=== PATIENT | male | born 1940 | race Caucasian/White ===

== ENCOUNTER 2017-06-15 01:53 | Emergency (ER) | payer MEDICARE, BC ==
[2017-06-15] MEDS ORDERED: NS 0.9% 1000 ML* 1,000 ML IV SCH (02:30)
[2017-06-15 02:45] LABS: ABS Basophils 0.1 10^3/ul (0-0.2); ABS Eosinophils 0.1 10^3/ul (0-0.6); ABS Lymphocytes 3.3 10^3/ul (1.0-4.8); ABS Monocytes 0.6 10^3/ul (0-0.8); ABS Nucleated RBC 0 10^3/ul; Eosinophil % 1.8 % (0-6); Hematocrit 47 % (42-52); Hemoglobin 15.5 g/dl (14.0-18.0); Lymphocyte % 46.8 % (25-47); Mean Corpuscular HGB Conc 33 g/dl (31-36); Mean Corpuscular Hemoglobin 30 pg (27-31); Mean Corpuscular Volume 91 fL (80-94); Mean Platelet Volume 9 um3 (7.4-10.4); Nucleated Red Blood Cells % 0.1; Platelet Count 225 10^3/ul (150-450); Red Blood Count 5.11 10^6/ul (4.0-5.4); Red Cell Distribution Width 13 % (10.5-15)
[2017-06-15 02:54] LABS: INR 2.38 (0.77-1.02)
[2017-06-15 04:04] VITALS: BP 131/61
--- NOTE | 2017-06-15 04:23 | ED ---
Fabian Garcia Natalie, scribed for Jose Hickman MD on 06/15/17 at 0218 . HPI Chest Pain - HPI Summary HPI Summary: The pt is a 76 y/o M presenting to the ED c/o right CP starting at 19:00. This occurred about 15-20 times since onset in intermittent 20-30 second intervals. He checked his BP and pulse, with both higher than normal and an increased amount of PVCs. The pt describes the pain as noticeable but not sharp. The pain is rated 2/10. The pain is aggravated by nothing and alleviated by nothing. He hasnt had any episodes in the last hour. The patient has treated the pain with nothing [employer]. Pt additionally c/o lightheadedness and dizziness. Pt denies nausea, diaphoresis, and SOB. He has hx of TIA in 2008, stent in 2003 , DVT, and Afib. He has had a stress test within the last two years. - History of Current Complaint Chief Complaint: EDChestPainROMI Time Seen by Provider: 06/15/17 02:03 Hx Obtained From: Patient Onset/Duration: Started Hours Ago - at 19:00, Resolved - hasn't had CP since 01: 00 Timing: Intermittent, Lasting Seconds - 20-30 seconds Initial Severity: Moderate Current Severity: Mild Pain Intensity: 0 Pain Scale Used: 0-10 Numeric Chest Pain Location: Right Anterior Chest Pain Radiates: No Character: Other: - "noticeable but not sharp" Aggravating Factor(s): Nothing Alleviating Factor(s): Nothing Associated Signs and Symptoms: Positive: Chest Pain, Dizziness, Lightheadedness. Negative: Shortness of Breath, Diaphoresis, Nausea - Allergy/Home Medications Allergies/Adverse Reactions: Allergies Allergy/AdvReac Type Severity Reaction Status Date / Time Sulfa Drugs Allergy Mild Rash Verified 04/23/16 09:55 Adhesive Tape Allergy See Comment Verified 04/23/16 09:56 PMH/Surg Hx/FS Hx/Imm Hx Previously Healthy: No Endocrine/Hematology History: Reports: Hx Anticoagulant Therapy - cumodin Denies: Hx Blood Disorders, Hx Blood Transfusions, Hx Bone Marrow Disease, Hx Diabetes, Hx Systemic Lupus Erythematosus, Hx Sickle Cell Disease, Hx Thyroid Disease, Hx Anemia, Hx Unexplained Bleeding, Other Endocrine/ Hematological Disorders Cardiovascular History: Reports: Hx Angina, Hx Angioplasty, Hx Coronary Artery Disease, Hx Deep Vein Thrombosis, Hx Hypertension - ON MEDS, Other Cardiovascular Problems/Disorders - A-FIB Denies: Hx Aneurysm, Hx Auto Implanted Cardiovert Defib, Hx Cardiac Arrest, Hx Cardiomegaly, Hx Congestive Heart Failure, Hx Hypercholesterolemia, Hx Hypotension, Hx Myocardial Infarction, Hx Pacemaker/ICD, Hx Peripheral Vascular Disease, Hx Rheumatic Fever, Hx Syncope, Hx Valvular Heart Disease Respiratory History: Denies: Hx Asthma, Hx Chronic Obstructive Pulmonary Disease (COPD) GI History: Reports: Hx Gastroesophageal Reflux Disease Denies: Hx Cirrhosis, Hx Crohn's Disease, Hx Diverticulosis, Hx Gastrointestinal Bleed, Hx Hiatal Hernia, Hx Irritable Bowel, Hx Jaundice, Hx Obstructive Bowel, Hx Ileostomy, Hx Pyloric Stenosis, Hx Ulcer, Other GI Disorders History: Reports: Hx Benign Prostatic Hyperplasia Denies: Hx Acute Renal Failure, Hx Chronic Renal Failure, Hx Dialysis, Hx Kidney Infection, Hx Kidney Stones, Hx Renal Disease, Other Problems/ Disorders Musculoskeletal History: Reports: Hx Arthritis, Hx Back Problems Denies: Hx Bursitis, Hx Congenital Bone Abnormalities, Hx Fibromyalgia, Hx Gout, Hx Orthopedic Injury, Hx Osteoporosis, Hx Scoliosis, Hx Tendonitis, Other Musculoskeletal History Sensory History: Reports: Hx Contacts or Glasses, Hx Vision Problem Denies: Hx Cataracts, Hx Eye Injury, Hx Eye Prosthesis, Hx Glaucoma, Hx Macular Degeneration, Hx Deafness, Hx Hearing Aid, Hx Hearing Problem, Other Sensory Impairments Opthamlomology History: Reports: Hx Contacts or Glasses, Hx Vision Problem Denies: Hx Cataracts, Hx Eye Injury, Hx Eye Prosthesis, Hx Glaucoma, Hx Macular Degeneration, Other Sensory Impairments Neurological History: Reports: Hx Nerve Disease - Jslbvcmg-Qojdu-Sblev syndrome , Other Neuro Impairments/Disorders - 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 BASAL CELL CARCINOMA REMOVED FROM BILATERAL EAR LOBES 2014. LEFT TOE NAIL REMOVED. TONSILS AGE 5. CATARACTS BILATERAL AND 04/01/16 Hx Anesthesia Reactions: No Infectious Disease History: No Infectious Disease History: Denies: Hx Hepatitis, Traveled Outside the [place] in Last 30 Days - Family History Known Family History: Positive: Hypertension Negative: Diabetes - Social History Alcohol Use: Occasionally Substance Use Type: Reports: None Hx Tobacco Use: No Smoking Status (MU): Never Smoked Tobacco Review of Systems Negative: Skin Diaphoresis Positive: Chest Pain Negative: Shortness Of Breath Negative: Nausea Neurological: Other - lightheadedness, dizziness All Other Systems Reviewed And Are Negative: Yes Physical Exam Triage Information Reviewed: Yes Vital Signs On Initial Exam: Initial Vitals Temp Pulse Resp BP Pulse Ox 97.8 F 68 18 131/80 95 06/15/17 01:56 06/15/17 01:56 06/15/17 01:56 06/15/17 01:56 06/15/17 01:56 Vital Signs Reviewed: Yes Appearance: Positive: Well-Appearing, No Pain Distress Skin: Positive: Warm, Skin Color Reflects Adequate Perfusion, Dry Head/Face: Positive: Normal Head/Face Inspection Eyes: Positive: EOMI, MARI ENT: Positive: Normal ENT inspection Neck: Positive: Supple, Nontender Respiratory/Lung Sounds: Positive: Clear to Auscultation, Breath Sounds Present Cardiovascular: Positive: RRR Abdomen Description: Positive: Nontender, Soft Bowel Sounds: Positive: Present Musculoskeletal: Positive: Normal, Strength/ROM Intact Neurological: Positive: Normal, Sensory/Motor Intact, Alert, Oriented to Person Place, Time Psychiatric: Positive: Affect/Mood Appropriate - Heath Coma Scale Coma Scale Total: 15 Diagnostics - Vital Signs Vital Signs Temp Pulse Resp BP Pulse Ox 06/15/17 01:56 97.8 F 68 18 131/80 95 - Laboratory Lab Results: Lab Results 06/15/17 06/15/17 06/15/17 Range/Units 02:34 02:34 02:34 WBC 7.0 (3.5-10.8) 10^3/ul RBC 5.11 (4.0-5.4) 10^6/ul Hgb 15.5 (14.0-18.0) g/dl Hct 47 (42-52) % MCV 91 (80-94) fL MCH 30 (27-31) pg MCHC 33 (31-36) g/dl RDW 13 (10.5-15) % Plt Count 225 (150-450) 10^3/ul MPV 9 (7.4-10.4) um3 Neut % (Auto) 42.6 (38-83) % Lymph % (Auto) 46.8 (25-47) % [place] % (Auto) 8.0 (1-9) % Eos % (Auto) 1.8 (0-6) % Baso % (Auto) 0.8 (0-2) % Absolute Neuts (auto) 3.0 (1.5-7.7) 10^3/ul Absolute Lymphs (auto) 3.3 (1.0-4.8) 10^3/ul Absolute Monos (auto) 0.6 (0-0.8) 10^3/ul Absolute Eos (auto) 0.1 (0-0.6) 10^3/ul Absolute Basos (auto) 0.1 (0-0.2) 10^3/ul Absolute Nucleated RBC 0 10^3/ul Nucleated RBC % 0.1 INR (Anticoag Therapy) 2.38 H (0.77-1.02) APTT 42.2 H (26.0-36.3) seconds D-Dimer, Quantitative < 200 (Less Than 230) ng/mL Sodium (133-145) mmol/L Potassium (3.5-5.0) mmol/L Chloride (101-111) mmol/L Carbon Dioxide (22-32) mmol/L Anion Gap (2-11) mmol/L BUN (6-24) mg/dL Creatinine (0.67-1.17) mg/dL Est GFR ( Amer) (>60) Est GFR (Non-Af Amer) (>60) BUN/Creatinine Ratio (8-20) Glucose (70-100) mg/dL Lactic Acid (0.5-2.0) mmol/L Calcium (8.6-10.3) mg/dL Magnesium (1.9-2.7) mg/dL Total Bilirubin (0.2-1.0) mg/dL AST (13-39) U/L ALT (7-52) U/L Alkaline Phosphatase (34-104) U/L Total Creatine Kinase (10-223) U/L CK-MB (CK-2) (0.6-6.3) ng/mL Troponin I (<0.04) ng/mL B-Natriuretic Peptide 13 ( - 100) pg/mL Total Protein (6.4-8.9) g/dL Albumin (3.2-5.2) g/dL Globulin (2-4) g/dL Albumin/Globulin Ratio (1-3) TSH (0.34-5.60) mcIU/mL 06/15/17 06/15/17 Range/Units 02:34 02:34 WBC (3.5-10.8) 10^3/ul RBC (4.0-5.4) 10^6/ul Hgb (14.0-18.0) g/dl Hct (42-52) % MCV (80-94) fL MCH (27-31) pg MCHC (31-36) g/dl RDW (10.5-15) % Plt Count (150-450) 10^3/ul MPV (7.4-10.4) um3 Neut % (Auto) (38-83) % Lymph % (Auto) (25-47) % [place] % (Auto) (1-9) % Eos % (Auto) (0-6) % Baso % (Auto) (0-2) % Absolute Neuts (auto) (1.5-7.7) 10^3/ul Absolute Lymphs (auto) (1.0-4.8) 10^3/ul Absolute Monos (auto) (0-0.8) 10^3/ul Absolute Eos (auto) (0-0.6) 10^3/ul Absolute Basos (auto) (0-0.2) 10^3/ul Absolute Nucleated RBC 10^3/ul Nucleated RBC % INR (Anticoag Therapy) (0.77-1.02) APTT (26.0-36.3) seconds D-Dimer, Quantitative (Less Than 230) ng/mL Sodium 139 (133-145) mmol/L Potassium 4.2 (3.5-5.0) mmol/L Chloride 106 (101-111) mmol/L Carbon Dioxide 27 (22-32) mmol/L Anion Gap 6 (2-11) mmol/L BUN 16 (6-24) mg/dL Creatinine 0.96 (0.67-1.17) mg/dL Est GFR ( Amer) 97.7 (>60) Est GFR (Non-Af Amer) 76.0 (>60) BUN/Creatinine Ratio 16.7 (8-20) Glucose 101 H (70-100) mg/dL Lactic Acid 1.7 (0.5-2.0) mmol/L Calcium 8.4 L (8.6-10.3) mg/dL Magnesium 2.1 (1.9-2.7) mg/dL Total Bilirubin 1.50 H (0.2-1.0) mg/dL AST 29 (13-39) U/L ALT 37 (7-52) U/L Alkaline Phosphatase 50 (34-104) U/L Total Creatine Kinase 470 H (10-223) U/L CK-MB (CK-2) 10.6 H (0.6-6.3) ng/mL Troponin I 0.01 (<0.04) ng/mL B-Natriuretic Peptide ( - 100) pg/mL Total Protein 6.1 L (6.4-8.9) g/dL Albumin 3.5 (3.2-5.2) g/dL Globulin 2.6 (2-4) g/dL Albumin/Globulin Ratio 1.3 (1-3) TSH 4.01 (0.34-5.60) mcIU/mL Result Diagrams: 06/15/17 02:34 06/15/17 02:34 Lab Statement: Any lab studies that have been ordered have been reviewed, and results considered in the medical decision making process. - EKG 01:53 Cardiac Rate: NL EKG Rhythm: Sinus Rhythm - 67 BPM EKG Interpretation: Nml ST. Positive PVC. Chest Pain Course/Dx - Course Course Of Treatment: Medications reviewed. Allergies noted. RECOMMENED ADMISSION TO THE PATIENT. HE DECLINED. PAIN STARTED AT 1900; THE TROPONIN WAS DRAWN 6 HOURS AFTER PAIN STARTED SO, NO SECOND TROPONIN DRAWN. WILL F/U WITH PMD OR RETURN IF WORSE. - Diagnoses Provider Diagnoses: Chest pain Discharge - Discharge Plan Condition: Stable Disposition: HOME Patient Education Materials: Chest Pain (ED) Referrals: Lucita Harden MD [Primary Care Provider] - Additional Instructions: FOLLOW UP WITH YOUR DOCTOR. CALL TODAY FOR FOLLOW UP. DISCUSS HAVING A CARDIAC STRESS TEST. RETURN TO THE EMERGENCY DEPARTMENT FOR ANY WORSENING OF YOUR CONDITION; PAIN, SHORTNESS OF BREATH, YOU FEEL ILL OR QUESTIONS OR CONCERNS. The documentation as recorded by the Fabian bhatti Natalie accurately reflects the service I personally performed and the decisions made by me, Jose Hickman MD.
--- NOTE | 2017-06-15 08:05 | RAD ---
INDICATION: Chest pain. COMPARISON: Comparison is made with prior chest x-ray study from November 12, 2015. TECHNIQUE: A portable view of the chest was obtained. FINDINGS: The heart is within normal limits in size. The lungs are underinflated with more focal elevation of the right hemidiaphragm. The lungs appear grossly clear. No pleural effusion is seen. IMPRESSION: NO EVIDENCE FOR ACUTE DISEASE.
== END 2017-06-15 04:03 | disposition home or self-care (01) ==
LOC: ED 01:53
DX: R07.9 Chest pain, unspecified (principal); Z86.73 Personal history of transient ischemic attack (TIA), and cerebral infarction without residual deficits; Z86.718 Personal history of other venous thrombosis and embolism; Z86.79 Personal history of other diseases of the circulatory system; Z88.2 Allergy status to sulfonamides
CPT/HCPCS: 36415; 71045; 80053; 82550; 82553; 83605; 83735; 83880; 84443; 84484; 85025; 85379; 85610; 85730; 93005; 99282

== ENCOUNTER 2017-08-24 08:20 | Observation (INO) | payer MEDICARE, BC ==
[2017-08-24 09:01] LABS: ABS Basophils 0 10^3/ul (0-0.2); ABS Eosinophils 0.1 10^3/ul (0-0.6); ABS Lymphocytes 2.3 10^3/ul (1.0-4.8); ABS Monocytes 0.4 10^3/ul (0-0.8); ABS Neutrophils 3.2 10^3/ul (1.5-7.7); ABS Nucleated RBC 0 10^3/ul; Hematocrit 46 % (42-52); Hemoglobin 15.5 g/dl (14.0-18.0); Lymphocyte % 38.7 % (25-47); Mean Corpuscular HGB Conc 34 g/dl (31-36); Mean Corpuscular Hemoglobin 31 pg (27-31); Mean Corpuscular Volume 91 fL (80-94); Mean Platelet Volume 9 um3 (7.4-10.4); Nucleated Red Blood Cells % 0.1; Platelet Count 199 10^3/ul (150-450); Red Blood Count 5.06 10^6/ul (4.0-5.4); Red Cell Distribution Width 14 % (10.5-15)
[2017-08-24 09:10] LABS: INR 1.08 (0.77-1.02)
[2017-08-24 09:18] LABS: EGFR Non-African American 74.2 (>60)
[2017-08-24] MEDS ORDERED: Diazepam TAB(*) 5 MG ONE (09:41)
[2017-08-24] MEDS ORDERED: diPHENhydraMINE PO* 25 MG ONE (09:41)
[2017-08-24] MEDS ORDERED: nitroGLYCERIN DRIP* 25,000 MCG/250 ML BTL ONE (09:51)
[2017-08-24] MEDS ORDERED: Heparin 2 UNITS/ML IVPREMIX* 3,000 ML IV ONE (09:51)
[2017-08-24] MEDS ORDERED: Lidocaine 1% INJ* 10 MG/ML 30 ML SDV ONE (09:51)
[2017-08-24] MEDS ORDERED: Iohexol 350 (CONTRAST) 200 ML MDV IV ONE ×2 (09:51→11:39)
[2017-08-24] MEDS ORDERED: fentaNYL* 50 MCG/ML 2 ML VIAL (100 MCG VIAL) ONE (09:51)
[2017-08-24] MEDS ORDERED: Midazolam* 1 MG/ML 10 ML VIAL (10 MG) ONE (09:51)
[2017-08-24] MEDS ORDERED: Heparin(*) 1000 UNIT/ML 10 ML VIAL CATH LAB IV ONE (09:51)
[2017-08-24] MEDS ORDERED: VERAPAMIL 2.5 MG/ML 2 ML VIAL ** 5 mg/2 ml ONE (09:52)
[2017-08-24] MEDS ORDERED: Aspirin 81 mg CHEW TAB* 81 MG TAB.CHEW ONE (09:55)
[2017-08-24] MEDS ORDERED: Adenosine* 3 MG/ML VIAL ONE (11:07)
[2017-08-24] MEDS ORDERED: Clopidogrel TAB* 300 MG ONE (11:37)
[2017-08-24] MEDS ORDERED: Bivalirudin(*) 250 MG VIAL ONE ×2 (11:46→11:47)
[2017-08-24] MEDS ORDERED: Nitroglycerin TAB 0.4 MG* 0.4 MG TAB SL PRN (12:39)
[2017-08-24] MEDS ORDERED: oxyCODONE/Acetamin 5/325 MG* TAB PO PRN (12:45)
[2017-08-24] MEDS ORDERED: Ondansetron INJ* 2 MG/ML VIAL IV PRN (12:45)
[2017-08-24] MEDS ORDERED: NS 0.9% 1000 ML* 1,000 ML IV SCH (12:45)
[2017-08-24] MEDS ORDERED: Acetaminophen TAB* 325 MG PO PRN (12:45)
[2017-08-24] MEDS ORDERED: Zolpidem TAB* 5 MG PO PRN (12:45)
[2017-08-24] MEDS: fentaNYL* 50 MCG/ML 2 ML VIAL (100 MCG VIAL) IV PRN ×2 (13:17→17:43)
[2017-08-24] MEDS ORDERED: Losartan TAB* 25 MG PO SCH (21:00)
[2017-08-24] MEDS: Potassium Chlor TAB* 20 MEQ TAB.ER PO SCH (21:32)
[2017-08-25 05:24] LABS: ABS Basophils 0.1 10^3/ul (0-0.2); ABS Eosinophils 0.1 10^3/ul (0-0.6); ABS Lymphocytes 2.8 10^3/ul (1.0-4.8); ABS Monocytes 0.6 10^3/ul (0-0.8); ABS Neutrophils 4.8 10^3/ul (1.5-7.7); ABS Nucleated RBC 0 10^3/ul; Eosinophil % 1.2 % (0-6); Hematocrit 43 % (42-52); Hemoglobin 14.7 g/dl (14.0-18.0); Lymphocyte % 33.1 % (25-47); Mean Corpuscular HGB Conc 34 g/dl (31-36); Mean Corpuscular Hemoglobin 31 pg (27-31); Mean Corpuscular Volume 91 fL (80-94); Mean Platelet Volume 9 um3 (7.4-10.4); Nucleated Red Blood Cells % 0.1; Platelet Count 194 10^3/ul (150-450); Red Blood Count 4.73 10^6/ul (4.0-5.4); Red Cell Distribution Width 14 % (10.5-15); White Blood Count 8.4 10^3/ul (3.5-10.8)
[2017-08-25 05:34] LABS: EGFR Non-African American 70.8 (>60)
[2017-08-25] MEDS ORDERED: Clopidogrel TAB* 75 MG PO SCH (09:00)
[2017-08-25] MEDS ORDERED: CMCS:Epleronone (NF) 25 MG TAB PO SCH (09:00)
[2017-08-25] MEDS ORDERED: Indapamide TAB* 2.5 MG PO SCH (09:00)
[2017-08-25] MEDS ORDERED: Aspirin 81 mg CHEW TAB* 81 MG TAB.CHEW PO SCH (09:00)
[2017-08-25 09:13] VITALS: BP 142/90
[2017-08-25] MEDS: Potassium Chlor TAB* 20 MEQ TAB.ER PO SCH (09:18)
--- NOTE | 2017-08-26 02:39 | CATH ---
CC: Dr. Padma Owens; Dr. Lucita Harden * CARDIAC CATHETERIZATION REPORT: DATE OF PROCEDURE: 08/24/17 - ROOM #ICU-03 INDICATION FOR PROCEDURE: The patient with history of shortness of breath and chest discomfort episodes with worsening left ventricular systolic function with focal reversible ischemia to the low posterolateral wall on stress testing and abnormal echocardiographic findings of proximal posterolateral wall motion abnormality and with [id number] aortic stenosis. PROCEDURE: Coronary arteriography, left heart catheterization, left ventriculography, balloon angioplasty, and placement of a 3.0 x 24 mm long Synergy drug-eluting stent post dilated proximally to 3.65 to 3.7 mm and in the distal portion to 3.2 mm. DESCRIPTION OF PROCEDURE: The patient was interviewed and examined in the holding area where the risks and benefits were explained. The right radial artery was assessed by ultrasound and found to be acceptable for an attempted approach. The risks and benefits were explained. He and his understood them and wished to proceed. He was brought to the cardiovascular laboratory where formal time-out was performed. The patient was prepped and draped in sterile fashion. The right radial artery area was anesthetized with 1% lidocaine. The right radial artery area was cannulated and a 6-Afghan Glidesheath was placed. A radial artery cocktail including 3000 units of heparin, 300 mcg of nitroglycerin, and 3 mg verapamil was given intraarterially. Following this, attempts were made to deliver a 5-Afghan 4 curve TIG diagnostic catheter. Unfortunately, there was excessive tortuosity with trying to attempt to get from the innominate artery into the descending aorta with the diagnostic catheter with frequent prolapse into the distal ascending aorta despite multiple wire approaches. An attempt was made utilizing an FL3.5 curve catheter, which found the same lack of success. Given the concern of the instability of diagnostic catheters and potentially guide catheters, decision was made to abort the radial artery approach. The right femoral artery had already been prepped and draped in sterile fashion. The right radial artery area was anesthetized with 1% lidocaine and the right radial artery was cannulated with an anterior wall stick only and initially a 5- Afghan sheath was placed. Coronary arteriography was performed utilizing a 4.5 curve FL5 Afghan catheter and a 4.0 curve 5-Afghan right coronary catheter. Central aortic pressure was recorded using an angled pigtail catheter advanced to the ascending aorta. The catheter was then passed across the aortic valve into the left ventricle where left ventricular pressure was recorded. Left ventriculography was performed utilizing a total of 24 cc of Omnipaque dye at a rate of 12 cc/sec. The catheter was then pulled back across the aortic valve to recheck gradient. Following this, decision was made to perform fractional flow reserve analysis of the proximal circumflex lesion. The 5-Afghan sheath was exchanged for a 6.5 Afghan Merit Prelude sheath. Guiding views were obtained utilizing a 6-Afghan VL 4 curve guide catheter. The patient received additional heparin bolus; however, the ACT was still found to be nontherapeutic and as such an Angiomax bolus was given and Angiomax drip was started. A FFR [address] [place] was advanced down the circumflex artery past the obstruction after being calibrated just outside the guide catheter. Multiple injections of adenosine were given intracoronary. Following this, the decision was then made to intervene into the proximal circumflex artery. A BMW guidewire was advanced down the circumflex artery and a 3.0 x 12 mm long NC Emerge balloon was advanced and expanded to assess the expandability of the lesion and also to auto damage estimator length of the lesion. Following this, a 3.0 x 24 mm long Synergy drug-eluting stent was deployed to high pressure with post deployment dilatations made with both the 3.0 x 12 mm long NC Emerge balloon to high pressures as well as a 3.5 x 8 mm long NC Emerge balloon to high pressure. Throughout the case, the right radial artery sheath was flushed on a routine basis and at the end of the case, the right radial artery sheath was removed and hemostasis was obtained with a Vasc Band and the right femoral artery sheath was removed after an injection was made to assess eligibility utilizing a closure device. A 6/7 Afghan Mynx closure device was deployed with good hemostasis. Various medications given throughout the case included initially Valium and Benadryl pre-cath and a total 324 mg of aspirin chewed prior to the cardiac catheterization. The patient received Versed in addition to heparin boluses, in addition to the Angiomax bolus and drip. The patient received 600 mg of clopidogrel and multiple fentanyl boluses for lower back discomfort. The total contrast used was 200 cc of Omnipaque dye. The radiation exposure included 21.6 minutes of fluoro time. The air kerma radiation was 2645 mGy. The DAP radiation was 15,810 microgray per sq. m. RESULTS: HEMODYNAMIC DATA: Left heart catheterization - revealed central aortic pressure to be recorded at 119/58 with a mean of 82. Left ventricular pressure was 117 over the ventricular end diastolic pressure of 11. LEFT VENTRICULOGRAPHY: Performed in the VARGAS projection revealed there was global left ventricular hypokinesis noted with an overall ejection fraction estimated at approximately 40% to 45%. CORONARY ARTERIOGRAPHY: A. Left coronary artery: 1. Left main: There was mild tapering of the distal left main approximately 20%. 2. Left anterior descending artery: The ostium of the left anterior descending artery had a 35% narrowing noted in it. There was a high first diagonal branch. Following this high first diagonal branch, there was a long segment in the proximal LAD with reduction noted to be 35% to 40%. The mid to distal area had a narrowing of 40%. Of note, the LAD traversed toward the apical region, but not well on to the lower apical or distal inferior wall. 3. Circumflex artery - a nondominant vessel supplying a very thin first high obtuse marginal branch that was small in nature. There was a short second obtuse marginal branch followed by a slightly larger third and much larger fourth obtuse marginal branch, which traversed to the inferior apical lateral wall. The last obtuse marginal branch was a low-lying branch. In the HUNGARIAN projection, there was a significant 80% to 85% obstruction noted just prior to and involving take off of the second obtuse marginal branch. Past this point, there was a mild 25% to 30% narrowing seen at the ostium of the fourth obtuse marginal branch and the continuation revealed a 45% obstruction in the ostium of the last low-lying obtuse marginal branch. B. Right coronary artery - a dominant vessel supplying the PDA and multiple posterior left ventricular branches. There was a [id number] 30% to 35% proximal narrowing noted. The mid portion to the artery had a 20% narrowing. Of note, at the area of prior stent placement prior to the PDA, there was no significant in-stent restenosis. The posterior descending artery itself had a proximal narrowing of 35% to 40%. Past this point, there was mild narrowing in the continuation to the posterior left ventricular branches (small in nature), the narrowing was minimal at 20% to 25%. FRACTIONAL FLOW RESERVE ANALYSIS OF PROXIMAL CIRCUMFLEX: - Lowest recorded reading of the fractional flow reserve analysis was found to be 0.79. INTERVENTION INTO THE PROXIMAL CIRCUMFLEX LESION: Successful reduction of significant 80% to 85% blockage in the proximal circumflex artery seen in HUNGARIAN projection worst view, with balloon angioplasty and placement of a 3.0 x 24 mm long Synergy drug-eluting stent post dilated, in the distal portion 3.2 mm, in the proximal area to 3.65 with 0% stenosis, KARI- 3 flow, and no dissection seen. OVERALL ASSESSMENT: Significant disease involving proximal circumflex with abnormal fractional flow reserve analysis with [id number] disease throughout the rest of the coronary system as described above. Presence of somewhat global left ventricular systolic dysfunction is somewhat out of proportion to the presence of coronary artery disease, although the inferior wall abnormalities may date back to prior issues from the right coronary artery prior to the time of stenting, although comparison would have to be made to prior LV function analysis and will be pursued through Dr. Owens. Obvious drug therapy for the global left ventricular hypokinesis will be pursued as well with AKSHAT inhibitor and beta-jalil therapy under Dr. Owens's guidance. Dual antiplatelet therapy would be recommended for minimum of 6 months ideally continued to a year if felt to be stable on antiplatelet regimen , of note with patient having to have institution of Coumadin pursued that will be restarted within the next several days and would recommend an INR approach of 2 to 2.5 at most during this time of dual-antiplatelet therapy with eventual potential for conversion to perhaps clopidogrel and Coumadin for more long- term basis versus aspirin and Coumadin at the discretion of Dr. Owens. [id number]/[id number] #: [id number] WILLIAM
--- NOTE | 2017-08-26 10:34 | DS ---
CC: Dr. Padma Owens; Dr. Lucita Harden * DISCHARGE SUMMARY: DATE OF ADMISSION: 08/24/17 DATE OF DISCHARGE: 08/25/17. FINAL DIAGNOSES: 1. Symptomatic stenotic coronary artery disease. 2. Hyperlipidemia. 3. Cardiomyopathy. 4. Paroxysmal atrial fibrillation. 5. Essential hypertension. 6. Gwxsh-Blmenup-Kbdpu syndrome. 7. Gastroesophageal reflux disease. 8. Sleep apnea. DISCHARGE MEDICATIONS: Included: 1. Aspirin 81 mg a day. 2. Calcium carbonate 500 mg daily. 3. Cholecalciferol 2000 units a day. 4. Clopidogrel 75 mg a day. 5. Cyanocobalamin 1000 mcg IM as at home. 6. Eplerenone 25 mg daily. 7. Finasteride 5 mg daily. 8. Indapamide 2.5 mg daily. 9. Irbesartan 150 daily. 10. Magnesium 64 mg tablet as at home. 11. Nitroglycerin p.r.n. 12. [place]-3 1000 mg one capsule a day. 13. Potassium 30 mEq b.i.d. HOSPITAL COURSE: The patient was admitted post-stent placement following cardiac catheterization revealing significantly stenosed proximal circumflex artery with an 85% narrowing noted and positive fractional flow reserve for significant lesion. A 3.0 x 24 mm long Synergy drug-eluting stent was delivered after balloon angioplasty and post-stent deployment balloon dilatations were to 3.65 in the proximal segment and 3.2 in the distal-most segment of the stent. There was mild to moderate coronary artery disease present as well. On the day of discharge, the patient was up and about with stable wound sites both from a radial artery approach, which had to be aborted because of the tortuous area from the innominate artery back into the descending aorta, as well as the wound site in the right femoral artery area. He was up and about without significant symptoms. His laboratory results on the day of discharge revealed a hemoglobin and hematocrit of 14.7 and 43 with a platelet count of 149,000, his BUN and creatinine were 19 and 1.0. Of note, he did have an elevated total bilirubin at 2.1, which apparently has a history for this. A total creatinine kinase was drawn at the request of the patient's spouse as he has had chronic elevations to a high level before; it was found to be 284, mildly elevated, much lower than his prior values. Of note, he has not been any hyperlipidemic agent recently because of the concern of further muscle weakening with his already present muscle weakness from his other medical issues. This is to be addressed at some point in time with Dr. Harden and perhaps Dr. Owens, his primary doctor. Of note, his Coumadin had been stopped for the procedure and he remained in sinus throughout the procedure and at the time of discharge. Re-institution of Coumadin will be determined by Dr. Owens, who will be seeing the patient back in follow up next week on August 31. This was her request to hold off with reinstitution of Coumadin until that time. 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 He has very infrequent bouts of this from a symptomatic stand-point. He was discharged on dual anti-platelet therapy; and, per ACC guidelines, theoretically the clopidogrel could be stopped in six months from now or ideally at a year's point if he has no significant issues at that time. Once Coumadin is reinstituted with three drugs on board, I would recommend keeping the INR in the 2 to 2.5 range while on three drugs. Consideration toward backing off and leaving clopidogrel with the Coumadin at some point in time could be made. Dr. Owens will be guiding that potential alteration therapy. EKG on the date of discharge revealed PVCs, which he has a history for, as well as nonspecific T wave changes. Of note, his potassium, despite being supplemented, has been in a lower range and consideration for perhaps having to increase the potassium further may need to be addressed. That will be left to Dr. Harden as primary physician. The patient received an education booklet in addition to stent card; and, as mentioned earlier, follow-up appointment with Dr. Owens, the primary internal grinder, has been made. [id number]/[facility] #: [id number] [facility] CENTERWayne
== END 2017-08-25 10:00 | disposition home or self-care (01) ==
LOC: CHICATH 08:20 → ICU 12:40
PROVIDERS: ADMIT Internal Medicine Cardiovascular Disease; ATTEND Internal Medicine Cardiovascular Disease
DX: I25.119 Atherosclerotic heart disease of native coronary artery with unspecified angina pectoris (principal); I35.0 Nonrheumatic aortic (valve) stenosis; E78.5 Hyperlipidemia, unspecified; I42.9 Cardiomyopathy, unspecified; I48.0 Paroxysmal atrial fibrillation; I10 Essential (primary) hypertension; G60.0 Hereditary motor and sensory neuropathy; K21.9 Gastro-esophageal reflux disease without esophagitis; G47.30 Sleep apnea, unspecified; Z79.82 Long term (current) use of aspirin; Z98.61 Coronary angioplasty status
CPT/HCPCS: 36415; 76937; 80048; 80053; 80061; 82550; 85025; 85610; 85730; 87641; 93005; 93458; 99156; 99157; A9270-GY; C1725; C1760; C1769; C1876; C1887; C9600-LC; G0378; J0153; J0583; J1644; J2250; J3010

== ENCOUNTER 2018-04-06 13:33 | Emergency (ER) | payer MEDICARE, OTHER ==
[2018-04-06 14:42] LABS: ABS Basophils 0.1 10^3/ul (0-0.2); ABS Eosinophils 0.3 10^3/ul (0-0.6); ABS Lymphocytes 2.8 10^3/ul (1.0-4.8); ABS Neutrophils 6.1 10^3/ul (1.5-7.7); ABS Nucleated RBC 0 10^3/ul; Eosinophil % 2.9 % (0-6); Hematocrit 47 % (42-52); Hemoglobin 16.1 g/dl (14.0-18.0); Lymphocyte % 27.3 % (25-47); Mean Corpuscular HGB Conc 34 g/dl (31-36); Mean Corpuscular Hemoglobin 31 pg (27-31); Mean Corpuscular Volume 91 fL (80-94); Mean Platelet Volume 8.1 um3 (7.4-10.4); Nucleated Red Blood Cells % 0.1; Platelet Count 341 10^3/ul (150-450); Red Blood Count 5.16 10^6/ul (4.00-5.40); Red Cell Distribution Width 13 % (10.5-15); White Blood Count 10.3 10^3/ul (3.5-10.8)
[2018-04-06 14:52] LABS: INR 1.33 (0.77-1.02)
--- NOTE | 2018-04-06 15:00 | RAD ---
HISTORY: SOB COMPARISONS: April 02, 2018 VIEWS: 3: AP and lateral views of the chest. FINDINGS: CARDIOMEDIASTINAL SILHOUETTE: The cardiomediastinal silhouette is normal. ELIZABETH: The elizabeth are normal. PLEURA: The costophrenic angles are sharp. No pleural abnormalities are noted. LUNG PARENCHYMA: The lung volumes are low. Again noted is a diffuse pattern of reticular opacification similar to the previous examination. ABDOMEN: The upper abdomen is clear. There is no subphrenic gas. BONES AND SOFT TISSUES: No bone or soft tissue abnormalities are noted. OTHER: None. IMPRESSION: PERSISTENT DIFFUSE INTERSTITIAL OPACIFICATION. THE DIFFERENTIAL INCLUDES INTERSTITIAL EDEMA VERSUS CHRONIC INTERSTITIAL LUNG DISEASE
--- NOTE | 2018-04-06 15:12 | ED ---
Shortness of Breath - HPI Summary HPI Summary: This patient is a 77 year old M presenting to [facility] accompanied by his with a chief complaint of SOB since 2 weeks ago, with increased fatigue today. At home, his O2 sat has been in low 80s, at times high 80s; chronic low O2 sat in low 90s. PMHx paralyzed R diaphragm. He denies fever, and has not gotten a flu shot. He endorses cough, sore throat, rales right lower chest noted by pt's (local adult education instructor) and pt's PCP, Dr. Lucita Harden on outpt visit. Pt has been taking Ceftin 500mg bid x days with no improvement. Had an outpt chest xray on 04/02/18 showing interstitial infiltrates. Sx worsen with standing or sitting up, specifically his pulse and respirations increase. He denies PMHx COPD. Pt notes using BiPAP for sleep apnea for over a year, but it did not make a difference in sx. PMHx Motgftd-Gddmf-Kbtzn, CK chronically elevated, CAD with stent 08/2017, paroxysmal afib on coumadin, LOI, HTN, Hyperlipidemia. - History of Current Complaint Chief Complaint: EDShortnessOfBreath Time Seen by Provider: 04/06/18 14:06 Hx Obtained From: Patient, Family/Route Sales Delivery Driver - , local adult education instructor, Other: - Dr. Lucita Harden by phone Onset/Duration: Gradual Onset, Lasting Weeks, Still Present Timing: Constant Current Severity: Moderate Dyspnea At: Rest Aggrevating Factors: Movement, Other - becoming upright Alleviating Factors: Nothing Associated Signs & Symptoms: Cough (Nonproductive) - sore throat - Allergy/Home Medications Allergies/Adverse Reactions: Allergies Allergy/AdvReac Type Severity Reaction Status Date / Time Sulfa (Sulfonamide Allergy Mild Rash Verified 04/06/18 13:50 Antibiotics) Adhesive Tape Allergy See Comment Verified 04/06/18 13:50 Home Medications: Home Medications Alpha Lipoic Acid 500 mg PO BID 04/06/18 [History Confirmed 04/06/18] Cholecalciferol (Vitamin D3) [Vitamin D3] 2,000 unit PO DAILY 04/06/18 [History Confirmed 04/06/18] L. Acidophilus/Bifid. Animalis [Probiotic Daily] 1 cap PO DAILY 04/06/18 [ History Confirmed 04/06/18] Magnesium Oxide 500 mg PO BID 04/06/18 [History Confirmed 04/06/18] Olopatadine 0.1% OPHTH (NF) [Patanol 0.1% OPHTH (NF)] 1 drop BOTH EYES BID PRN 04/06/18 [History Confirmed 04/06/18] [place]-3 Fatty Acids (Nf) [Fish Oil (NF)] 1,000 mg PO DAILY 04/06/18 [History Confirmed 04/06/18] Potassium Chlor TAB* [Klor Con ER TAB*] 60 meq PO DAILY 04/06/18 [History Confirmed 04/06/18] Venlafaxine EXT RELEASE CAP* [Effexor Xr CAP*] 150 mg PO DAILY 04/06/18 [ History Confirmed 04/06/18] Warfarin TAB(*) [Coumadin TAB(*)] 4.5 mg PO DAILY 04/06/18 [History Confirmed ] ceFUROXime TAB(*) [Ceftin TAB 250 MG(*)] 500 mg PO BID 04/06/18 [History Confirmed 04/06/18] PMH/Surg Hx/FS Hx/Imm Hx Previously Healthy: No Endocrine/Hematology History: Reports: Hx Anticoagulant Therapy - warfarin Denies: Hx Blood Disorders, Hx Blood Transfusions, Hx Bone Marrow Disease, Hx Diabetes, Hx Systemic Lupus Erythematosus, Hx Sickle Cell Disease, Hx Thyroid Disease, Hx Anemia, Hx Unexplained Bleeding, Other Endocrine/ Hematological Disorders Cardiovascular History: Reports: Hx Angina, Hx Angioplasty - stent placed 2017 at [facility], and 2004 [facility] [place] , Hx Atrial Fibrillation, Hx Coronary Artery Disease, Hx Deep Vein Thrombosis, Hx Hypertension - ON MEDS Denies: Hx Aneurysm, Hx Auto Implanted Cardiovert Defib, Hx Cardiac Arrest, Hx Cardiomegaly, Hx Congestive Heart Failure, Hx Hypercholesterolemia, Hx Hypotension, Hx Myocardial Infarction, Hx Pacemaker/ICD, Hx Peripheral Vascular Disease, Hx Rheumatic Fever, Hx Syncope, Hx Valvular Heart Disease Respiratory History: Reports: Hx Sleep Apnea, Other Respiratory Problems/ Disorders - RIGHT DIAPHRAGM PARALYSIS Denies: Hx Asthma, Hx Chronic Obstructive Pulmonary Disease (COPD) GI History: Reports: Hx Gastroesophageal Reflux Disease Denies: Hx Cirrhosis, Hx Crohn's Disease, Hx Diverticulosis, Hx Gastrointestinal Bleed, Hx Hiatal Hernia, Hx Irritable Bowel, Hx Jaundice, Hx Obstructive Bowel, Hx Ileostomy, Hx Pyloric Stenosis, Hx Ulcer, Other GI Disorders History: Reports: Hx Benign Prostatic Hyperplasia Denies: Hx Acute Renal Failure, Hx Chronic Renal Failure, Hx Dialysis, Hx Kidney Infection, Hx Kidney Stones, Hx Renal Disease, Other Problems/ Disorders Musculoskeletal History: Reports: Hx Arthritis, Hx Back Problems Denies: Hx Bursitis, Hx Congenital Bone Abnormalities, Hx Fibromyalgia, Hx Gout, Hx Orthopedic Injury, Hx Osteoporosis, Hx Scoliosis, Hx Tendonitis, Other Musculoskeletal History Sensory History: Reports: Hx Vision Problem Denies: Hx Cataracts, Hx Contacts or Glasses, Hx Eye Injury, Hx Eye Prosthesis, Hx Glaucoma, Hx Macular Degeneration, Hx Deafness, Hx Hearing Aid, Hx Hearing Problem, Other Sensory Impairments Opthamlomology History: Reports: Hx Vision Problem Denies: Hx Cataracts, Hx Contacts or Glasses, Hx Eye Injury, Hx Eye Prosthesis, Hx Glaucoma, Hx Macular Degeneration, Other Sensory Impairments Neurological History: Reports: Hx CVA - "spinal stroke" , Hx Nerve Disease - Cgoceci-Ujhvm-Gbzyu syndrome, Other Neuro Impairments/Disorders - 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 BASAL CELL CARCINOMA REMOVED FROM BILATERAL EAR LOBES 2014. LEFT TOE NAIL REMOVED. TONSILS AGE 5. CATARACTS BILATERAL AND 04/01/16. Cardiac stent 08/24/17, [facility] Hx Anesthesia Reactions: No Infectious Disease History: No Infectious Disease History: Denies: Hx Hepatitis, Traveled Outside the [place] in Last 30 Days - Family History Known Family History: Positive: Hypertension Negative: Diabetes - Social History Occupation: Retired Lives: With Family Alcohol Use: None Substance Use Type: Reports: None Hx Tobacco Use: No Smoking Status (MU): Never Smoked Tobacco Review of Systems Negative: Fever Positive: Sore Throat Cardiovascular: Negative Positive: Shortness Of Breath, Cough, Other - rales, low O2 sat noted by physician Positive: no symptoms reported Positive: Other - generalized worsening muscle weakness with Charcot Lynette Tooth ds Skin: Negative Neurological: Negative Psychological: Normal All Other Systems Reviewed And Are Negative: Yes Physical Exam - Summary Physical Exam Summary: Appearance: Ill-appearing, no pain distress, well-nourished, hypoxic, O2 sat 87- 90 on RA Skin: Warm, color reflects adequate perfusion, dry Head: Normal Head/Face inspection, atraumatic Eyes: Conjunctiva clear ENT: Normal inspection Neck: Supple, no nodes, no JVD Respiratory: Rales R base, decreased breath sounds throughout Cardio: RRR, No murmur, pulses normal, brisk capillary refill Abdomen: Soft, nontender Bowel sounds: Present Musculoskeletal: Strength Intact/ROM intact, no calf tenderness, no edema. Psychological: Normal Neuro: Alert, moves all extremities, no focal deficit noted Triage Information Reviewed: Yes Vital Signs On Initial Exam: Initial Vitals Temp Pulse Resp BP Pulse Ox 98.2 F 94 20 109/69 90 04/06/18 13:45 04/06/18 13:45 04/06/18 13:45 04/06/18 13:45 04/06/18 13:45 Vital Signs Reviewed: Yes Diagnostics - Vital Signs Vital Signs Temp Pulse Resp BP Pulse Ox 04/06/18 14:31 93 27 91 04/06/18 13:45 98.2 F 94 20 109/69 90 - Laboratory Lab Results: Lab Results 04/06/18 04/06/18 Range/Units 14:25 14:25 WBC 10.3 (3.5-10.8) 10^3/ul RBC 5.16 (4.00-5.40) 10^6/ul Hgb 16.1 (14.0-18.0) g/dl Hct 47 (42-52) % MCV 91 (80-94) fL MCH 31 (27-31) pg MCHC 34 (31-36) g/dl RDW 13 (10.5-15) % Plt Count 341 (150-450) 10^3/ul MPV 8.1 (7.4-10.4) um3 Neut % (Auto) 59.4 (38-83) % Lymph % (Auto) 27.3 (25-47) % Mcminn % (Auto) 9.5 H (0-7) % Eos % (Auto) 2.9 (0-6) % Baso % (Auto) 0.9 (0-2) % Absolute Neuts (auto) 6.1 (1.5-7.7) 10^3/ul Absolute Lymphs (auto) 2.8 (1.0-4.8) 10^3/ul Absolute Monos (auto) 1.0 H (0-0.8) 10^3/ul Absolute Eos (auto) 0.3 (0-0.6) 10^3/ul Absolute Basos (auto) 0.1 (0-0.2) 10^3/ul Absolute Nucleated RBC 0 10^3/ul Nucleated RBC % 0.1 INR (Anticoag Therapy) 1.33 H (0.77-1.02) APTT 35.0 (26.0-36.3) seconds D-Dimer, Quantitative < 200 (Less Than 230) ng/mL Result Diagrams: 04/06/18 14:25 04/06/18 14:25 Lab Statement: Any lab studies that have been ordered have been reviewed, and results considered in the medical decision making process. - Radiology CXR Radiology Interpretation Completed By: Radiologist Summary of Radiographic Findings: PERSISTENT DIFFUSE INTERSTITIAL OPACIFICATION. THE DIFFERENTIAL INCLUDES INTERSTITIAL EDEMA VERSUS CHRONIC INTERSTITIAL LUNG DISEASE. Dr. Morales has reviewed this report. - EKG 1456 Cardiac Rate: NL - 76 EKG Rhythm: Sinus Rhythm ST Segment: Non-Specific Ectopy: None - LAD (-32). nl QTc, nl AV IVCT. No STEMI Re-Evaluation - Re-Evaluation First Eval Re-Evaluation Time: 16:06 Change: Unchanged Comment: BP in room 121/74. Pulse ox 90, 72 BPM, RR 22. Agreeable to admit if needed. Second Eval Re-Evaluation Time: 18:25 Change: Worse Comment: O2 sat 87 % on room air. Declines supplemental O2. Third Eval Re-Evaluation Time: 19:15 Change: Unchanged Comment: Made joint decision with Dr. Harden to discharge Dr. Mcneal. Dr. Park ,hospitalist, also consulted on pt in the ED. Course/Dx - Course Course Of Treatment: A 77-year-old M presents to the ED with a CC of SOB for 2 weeks. (+) cough, rales, low O2 sat (chronic, but not usually this low (in high 80s in room, has dipped to low 80s at home), and sore throat. (-) fever. PMHx paralyzed right diaphragm, Ljzkmmx-Nmqxk-Zzvfu, CAD with stents, afib on warfarin, HTN, Hyperlipidemia, LOI. Denies PMHx COPD. A CXR reveals PERSISTENT DIFFUSE INTERSTITIAL OPACIFICATION. THE DIFFERENTIAL INCLUDES INTERSTITIAL EDEMA VERSUS CHRONIC INTERSTITIAL LUNG DISEASE. An EKG reveals NSR at 76 BPM with LAD (-32), nl QTc, nl AV IVCT. No STEMI. In the ED course, pt declined supplemental O2 and was given no medications. Pt labs show high mono %, high abs monos, high INR, high total bilirubin, high CK, and high CK-MB. Influenza swab and procalcitonin were negative. WBC count was not elevated and there was no left shift. CRP was normal. Troponin was 0.01. BNP was 7. High resolution CT chest read by Dr. Michel showed atelectasis Right lower lobe and Patchy "tree in bud" pattern of airway and alveolar inflammation. Discussion with Dr. Lucita Harden by phone, Dr. Park, Dr Basia Mcneal (pt's and local pediatricain). Decision was made to discharge pt to home with close follow up with Dr. Harden and soon follow up with Dr. Stern. - Diagnoses Differential Diagnosis/HQI/PQRI: Positive: Bronchitis, CHF, Pneumonia Provider Diagnoses: Hypoxia, Dyspnea, Interstitial lung disease - Physician Notifications Discussed Care of Patient With: Julio C Park Time Discussed With Above Provider: 18:00 Instructed by Provider To: Other - consults Discharge - Sign-Out/Discharge Documenting (check all that apply): Patient Departure - discharge - Discharge Plan Condition: Stable Disposition: HOME Patient Education Materials: Dyspnea (ED) Referrals: Lucita Harden MD [Primary Care Provider] - 1 Day Rebecca Stern MD [Medical Doctor] - As Soon As Possible - Billing Disposition and Condition Condition: STABLE Disposition: Home - Attestation Statements Document Initiated by Scribe: Yes Documenting Scribe: Jovon Major Provider For Whom Roby is Documenting (Include Credential): Dr. Payton Morales MD Scribe Attestation: Jovon Garcia scribed for Dr. Payton Morales MD on 04/11/18 at 1353. Scribe Documentation Reviewed: Yes Provider Attestation: The documentation as recorded by the scribe, Jovon Bezirganian accurately reflects the service I personally performed and the decisions made by me, Dr. Payton Morales MD
[2018-04-06 15:16] LABS: EGFR Non-African American 76.7 (>60)
[2018-04-06] MEDS ORDERED: Albuterol/Ipratropium NEB.SOL* Albuterol 2.5 MG/Ipratropium 0.5 MG 3 ML INH ONE (16:08)
--- NOTE | 2018-04-06 18:14 | RAD ---
INDICATION: Shortness of breath for 2 weeks. Being treated for pneumonia. COMPARISON: Chest radiograph of the same date and September 06, 2010 CT. TECHNIQUE: Multidetector CT images were obtained from the lung apices to the upper abdomen with contiguous 5 mm axial images with coronal and sagittal reformatted images. Additional data acquisitions following high-resolution CT protocol including inspiration and expiration supine and inspiration prone 1.25 mm slices at 10 mm intervals series. Evaluation of the viscera is limited without IV contrast. REPORT: Low lung volumes particularly on the RIGHT with posterior displacement of the major fissure and significant partial atelectasis of the RIGHT lower lobe. No suspicious focal pulmonary lesions evident. Negative for pleural effusions or pneumothorax. Patchy tree-in-bud pattern of airway and alveolar inflammatory change throughout both lungs most consistent with probable pneumonia. Negative for significant air trapping on the expiratory series. No central endobronchial lesions evident. Upper normal 1 cm short axis subcarinal lymph node. Negative for thoracic lymphadenopathy based on short axis criteria. Negative for cardiomegaly. Coronary artery calcifications and probable circumflex stent. Negative for pericardial effusion. Normal diameter thoracic aorta. Images through the upper abdomen are remarkable for moderately severe gastric distention with fluid and food stuff. Negative for associated distention of the esophagus. Negative for suspicious thoracic osseous lesions. IMPRESSION: #. Low lung volumes with associated atelectasis most prominent at the RIGHT lower lobe. #. Patchy tree-in-bud pattern of airway and alveolar inflammation. The differential includes typical bronchopneumonia as well as endobronchial spread of less typical pathogens including fungal pathogens. Correlate with sputum assessment and if negative consider bronchoscopy. #. Negative for thoracic lymphadenopathy.
[2018-04-06 19:27] VITALS: BP 123/81
--- NOTE | 2018-04-07 04:07 | CONS ---
CONSULTATION REPORT: DATE OF CONSULT: 04/06/18 - EMERGENCY DEPT REFERRING PHYSICIAN: Dr. Payton Morales. PRIMARY CARE PHYSICIAN: Dr. Lucita Harden. CHIEF COMPLAINT: Dyspnea on exertion, fatigue, and hypoxia. HISTORY OF PRESENT ILLNESS: Saturnino Mcneal is a 77-year-old male, past medical history of CAD status post drug-eluting stent 08/24/17 (drug-eluting stents to proximal circ), paroxysmal atrial fibrillation on Coumadin, hyperlipidemia, hypertension, Charcot-Lynette tooth, GERD, obstructive sleep apnea (she says has resolved), spinal CVA with resultant vertigo. He also has history of paralysed right diaphragm. Two weeks ago, he started to have raw irritation in the, what he terms as, trachea and a loud nonproductive cough. He had progressive loss of energy and dyspnea on exertion. He never has had fevers, headaches or muscle aches. He has followed up with his primary care physician, Dr. Lucita Harden who ordered a chest x-ray which was performed on 04/02/18 and was read as diffuse interstitial infiltrates and possible small right upper lobe nodule density with consideration for pneumonia versus mild congestive heart failure, and he was started on Ceftin, which he has taken for 5 days. He was supposed to follow up with a repeat chest x-ray at [facility] on the day of admission, but he felt so low energy that he did not feel like he was safe to drive, so he [place] [facility] [place] work[place]. He has noticed he has had a pulse oximetry for the last few weeks and his baseline is he says is in the mid 90s, but during sleep over the last week, he has been noticed to be in the low to mid 80s and in the emergency room, he has been noted to be mostly in the high 80s, around 87. His workup in the emergency room has included a chest x-ray which showed persistent diffuse interstitial opacification versus chronic interstitial lung disease. Dr. Morales talked to Dr. Harden and consideration for referral to hospitalist service for admission was pursued. In the interim, he has since received a CT of his chest which demonstrated, 1. Low lung volumes associated with atelectasis most prominent at the right lower lobe. 2. Also patchy tree-in-bud pattern of airways and alveolar inflammation. The differential includes typical bronchopneumonia as well as endobronchial spread of a less typical pathogen including fungal pathogens. Correlate with sputum assessment and if negative consider bronchoscopy. 3. Negative for thoracic lymphadenopathy. Further workup included normal white count of 10.3. No left shift. Normal CRP of 7.9. A BNP of 7. A procalcitonin of less than 0.1. Influenza A and B, rapid swabs that were negative. He has been afebrile, heart rate in the 70s to 80s, blood pressure normotensive and as mentioned satting in the high 80s on room air and refusing any supplemental oxygen. PAST MEDICAL HISTORY: Coronary artery disease, status post stent, 08/24/17 to the proximal circ, drug-eluting stents; hypertension; hyperlipidemia; cardiomyopathy; paroxysmal atrial fibrillation on Coumadin; hypertension; GERD; obstructive sleep apnea (he says resolved); vertigo stemming from a spinal CVA; right diaphragm paralysis, Burfe-Upsmzef-Uynfq with resultant weakness of plantar flexion and dorsiflexion of the feet and muscle wasting and fasciculations. He uses a walker at baseline. PAST SURGICAL HISTORY: Includes stent. HOME MEDICATIONS: Which include: 1. Fairland-3 fatty acid 1000 mg p.o. daily. 2. Probiotic 1 capsule p.o. daily. 3. Finasteride 5 mg p.o. daily. 4. Calcium carbonate 500 mg p.o. daily. 5. Alpha-Lipoic acid 500 mg p.o. b.i.d. 6. Cholecalciferol 2000 units p.o. daily. 7. Magnesium oxide 500 mg p.o. b.i.d. 8. Cyanocobalamin 1000 mcg IM monthly. 9. Potassium chloride 60 mEq p.o. daily. 10. Patanol 1 drop both eye b.i.d. p.r.n. 11. Eplerenone 25 mg p.o. daily. 12. Irbesartan 150 mg p.o. at bedtime. 13. Indapamide 2.5 mg p.o. daily. 14. Warfarin 4.5 mg p.o. daily. 15. Venlafaxine 150 mg p.o. daily. 16. Ceftin 500 mg p.o. b.i.d. for the last 5 days. ALLERGIES: SULFA ANTIBIOTICS and ADHESIVE TAPE. FAMILY HISTORY: His mother lived to 100 years old, ultimately with Charcot - Lynette-Tooth. Father of a stroke at age 85, had hypertension. His medical surrogate is his , Mickie Mcneal. He desires to be a full code. SOCIAL HISTORY: He is a never smoker. He does drink liquor in modest quantities about once a week. He is a retired professor of [employer], [employer]. 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 REVIEW OF SYSTEMS: Complete 14-point review of systems negative except as per HPI. He denies any headache, fevers, chills, rashes, recent travel, abdominal pain, nausea. He does have diarrhea since starting the Ceftin. He had a fall Wednesday, 4 days ago. Overall, loss of energy and dyspnea on exertion are his main complaints. PHYSICAL EXAM: General Appearance: No acute distress. Vital Signs: Temperature 98.2, heart rate 86, respiratory rate between 20 and 29, oxygen saturation between 87% and 93%, blood pressure initially 109/69. HEENT: Normo- cephalic, atraumatic. Pupils are equal, round, and reactive to light. Extraocular motions are intact. No scleral icterus. Moist mucous membranes. No cervical lymphadenopathy. No oropharyngeal lesions. Neck: Supple. Lungs: With diffuse rales and decreased breath sounds at the right lower base. Cardiovascular: Regular rate and rhythm. No murmurs, rubs, or gallops. Abdomen : Soft, nontender, nondistended. Extremities: Warm, well perfused. No peripheral edema. Neuro: Contract Serviceman strength 5/5. Biceps, deltoid is 5/5. Cranial nerves II through XII intact. Hip flexion 4+/5 bilaterally. Dorsi and plantar flexion 4/5 bilaterally. Diminished sensation in bilateral lower extremities. DIAGNOSTIC STUDIES/LAB DATA: White count 10.3, hemoglobin 16.1, hematocrit 47, platelets 341, neutrophil percent 59.4%. INR 1.33. D-dimer less than 200. Sodium 139, potassium 4.2, chloride 104, carbon dioxide 28, BUN 18, creatinine 0.95, glucose 98, lactic acid 1.4, calcium 9.4. Total bili 1.10, AST 33, ALT 37 , alk phos 72. Total CK 476. CK-MB 9.0. Troponin 0.01. CRP 7.95. BNP 7. Total protein 7.0, albumin 3.9. Procalcitonin negative less than 0.1. Influenza A and B rapid negative. IMAGING: CT chest and chest x-ray as described in the HPI. ASSESSMENT AND PLAN: Chris Lam is a 77-year-old male with past medical history of Vkomz-Djyswir-Kxley, right diaphragm paralysis, coronary artery disease, stent 7 months ago on dual-antiplatelet, hypertension, cardiomyopathy with recent last echocardiogram with an EF of 40% to 45% on 07/28/17 with diastolic dysfunction, and posterior wall motion abnormalities and moderate aortic valve stenosis, who is presenting with 2 weeks of dyspnea on exertion, fatigue, and relative hypoxia and CT imaging concerning for diffuse interstitial process, which has been persistent compared to the chest x-ray from 4 days ago. He has never had fevers, leukocytosis, cough. No focal infiltrates on any of the imaging that has been performed. He has not had any improvement on the Ceftin as 5 days. Long discussion was had with the patient' s who is local steel roller and the patient and would prefer to pursue further workup as an outpatient, following up with Dr. Harden and Dr. Stern. For further workup of his interstitial process. He is refusing any supplemental oxygen here. There is no evidence of any bacterial infection. He has a negative procalcitonin. Normal white count. No focal process. Likely, he has some sort of viral process versus other inflammatory infectious lung disease. He denies any rash or muscular complaints other than his progressive Atymt-Szumvbb-Mpwzd disease. Consideration for further evaluation by [facility] should also be entertained if not resolving but suspicion is for a viral pneumonia. Of note, he has had substantial international travel throughout his life traveling over to 45 countries including [place], [place], [place], [place], [place], etc., but nothing in the last 3 years. So, he is potentially at risk for other fungal or esoteric pathogens what we will not normally see. Consideration for outpatient bronchoscopy if symptoms are not improving. TIME SPENT: Time spent on consult is 60 minutes. [id number]/CPS #: [id number] MTDD
== END 2018-04-06 19:26 | disposition home or self-care (01) ==
LOC: ED 13:33
DX: J84.9 Interstitial pulmonary disease, unspecified (principal); R09.02 Hypoxemia; R06.00 Dyspnea, unspecified; Z87.2 Personal history of diseases of the skin and subcutaneous tissue; G60.0 Hereditary motor and sensory neuropathy; Z79.01 Long term (current) use of anticoagulants; Z88.2 Allergy status to sulfonamides
CPT/HCPCS: 36415; 71046; 71250; 80053; 82550; 82553; 83605; 83880; 84145; 84484; 85025; 85379; 85610; 85730; 86140; 87040; 93005; 99282; A9270-GY

== ENCOUNTER 2023-01-13 19:30 | Inpatient (IN) ==
[2023-01-13] MEDS ORDERED: Lactated Ringers 1000 ml BAG 1,000 ML IV ONE ×2 (20:06→21:56)
[2023-01-13 20:29] LABS: Urine Appearance Turbid; Urine Bilirubin Negative (Negative); Urine Blood 3+ (Negative); Urine Color Yellow; Urine Glucose Negative (Negative); Urine Ketones Negative (Negative); Urine Nitrite Negative (Negative); Urine Protein 2+(100 mg/dL) (Negative); Urine Specific Gravity 1.011 (1.002-1.030); Urine Urobilinogen Negative (Negative)
[2023-01-13 20:34] LABS: ABS Lymphocytes 0.4 10^3/uL (1.0-4.8); ABS Neutrophils 4.7 10^3/uL (1.5-7.6); ABS Nucleated RBC 0.01 10^3/ul; Eosinophil % 0.1 %; Hematocrit 47.8 % (38-53); Mean Corpuscular Hemoglobin 30.9 pg (27-33); Mean Corpuscular Hgb Conc 33.4 g/dL (31-36); Mean Corpuscular Volume 92.3 fL (80-97); Mean Platelet Volume 8.9 fL (7.5-11.2); Nucleated Red Blood Cells % 0.3 /100 WBC (0.0-0.4); Platelet Count 226 10^3/uL (150-450); Red Blood Count 5.17 10^6/uL (4.06-5.63); Red Cell Distribution Width 13.5 % (12-17); White Blood Count 5.2 10^3/uL (3.6-10.2)
[2023-01-13 20:47] LABS: Albumin 3.9 g/dL (3.2-5.2); Albumin/Globulin Ratio 1.4 (1-3); C Reactive Protein 1.72 mg/L (<8.01); Calcium 8.7 mg/dL (8.6-10.3); Creatinine, Serum 0.89 mg/dL (0.67-1.17); Globulin 2.7 g/dL (2-4); Potassium 3.6 mmol/L (3.5-5.0); Total Bilirubin 1.6 mg/dL (0.2-1.0); Total Protein 6.6 g/dL (6.4-8.9)
[2023-01-13 20:58] LABS: Urine Bacteria 1+ (Absent); Urine Red Blood Cell 3+(>10/hpf) (Absent); Urine White Blood Cell 3+(>20/hpf) (Absent)
[2023-01-13] MEDS ORDERED: Vancomycin 1,500 MG in NS 0.9% 250 ml 250 ML IVPB ONE (21:00)
[2023-01-13] MEDS ORDERED: cefTRIAXone 1 gm/50 mL D5W 1 GM/50 ML BAG IV ONE (21:00)
[2023-01-13 21:06] LABS: INR 3.35 (0.88-1.18)
[2023-01-13] MEDS ORDERED: Iodixanol (CONTRAST) 320 MG/ML 100 ML SDV IV ONE (22:35)
[2023-01-14] MEDS ORDERED: Lactated Ringers 1000 ml BAG 1,000 ML IV ONE (00:54)
[2023-01-14] MEDS ORDERED: Ondansetron 4 mg VIAL 2 MG/ML 2 ml VIAL IV PRN (01:30)
[2023-01-14] MEDS ORDERED: DOXYcycline 100 MG in NS 0.9% 250 ml 250 ML IVPB SCH (02:00)
[2023-01-14 05:49] LABS: Hematocrit 40.5 % (38-53); Hemoglobin 13.8 g/dL (13.2-16.3); Mean Corpuscular Hemoglobin 31.3 pg (27-33); Mean Corpuscular Hgb Conc 33.9 g/dL (31-36); Mean Corpuscular Volume 92.3 fL (80-97); Platelet Count 199 10^3/uL (150-450); Red Blood Count 4.39 10^6/uL (4.06-5.63); Red Cell Distribution Width 13.8 % (12-17); White Blood Count 24.8 10^3/uL (3.6-10.2)
[2023-01-14 06:06] LABS: Calcium 7.6 mg/dL (8.6-10.3); Creatinine, Serum 1.02 mg/dL (0.67-1.17); Magnesium 1.6 mg/dL (1.9-2.7); Potassium 3.9 mmol/L (3.5-5.0); eGFR CKD-EPI 72.9 (>60)
[2023-01-14 06:38] LABS: ABS Lymphocytes 0.3 10^3/uL (1.0-4.8); ABS Monocytes 0.8 10^3/uL (0.0-1.1); ABS Neutrophils 23.7 10^3/uL (1.5-7.6); ABS Nucleated RBC 0.01 10^3/ul; Lymphocyte % 1.2 %
[2023-01-14 06:42] LABS: INR 5.43 (0.88-1.18)
[2023-01-14 06:59] LABS: RBC Morphology Normal (Normal)
[2023-01-14] MEDS ORDERED: Magnesium Sulf 4 GM/100 ML IV 4,000 MG/100 ML BAG IVPB ONE (08:00)
[2023-01-14] MEDS: CMCS:Venlafaxine 25 mg TAB (NF) PO SCH (10:23)
[2023-01-14] MEDS ORDERED: Vancomycin per Pharmacy 1 EA NOTE FOLLOW UP SCH (14:00)
[2023-01-14] MEDS ORDERED: Vancomycin 1,750 MG in NS 0.9% 500 ml BAG 500 ML IVPB ONE (15:00)
[2023-01-14 16:17] LABS: Hematocrit 42.4 % (38-53); Hemoglobin 14.1 g/dL (13.2-16.3); Mean Corpuscular Hemoglobin 30.8 pg (27-33); Mean Corpuscular Hgb Conc 33.2 g/dL (31-36); Mean Corpuscular Volume 92.9 fL (80-97); Mean Platelet Volume 8.8 fL (7.5-11.2); Platelet Count 183 10^3/uL (150-450); Red Blood Count 4.57 10^6/uL (4.06-5.63); Red Cell Distribution Width 13.9 % (12-17); White Blood Count 22.9 10^3/uL (3.6-10.2)
[2023-01-14 16:21] LABS: ABS Lymphocytes 0.4 10^3/uL (1.0-4.8); ABS Monocytes 0.9 10^3/uL (0.0-1.1); ABS Neutrophils 21.6 10^3/uL (1.5-7.6); ABS Nucleated RBC 0.01 10^3/ul; Lymphocyte % 1.8 %
[2023-01-14] MEDS: Lactated Ringers 1000 ml BAG 1,000 ML IV SCH (17:39)
[2023-01-14] MEDS ORDERED: cefTRIAXone 1 gm/50 mL D5W 1 GM/50 ML BAG IV SCH (21:00)
[2023-01-15] MEDS: Lactated Ringers 1000 ml BAG 1,000 ML IV SCH (02:47)
[2023-01-15 07:53] LABS: ABS Lymphocytes 1.1 10^3/uL (1.0-4.8); ABS Monocytes 0.8 10^3/uL (0.0-1.1); ABS Neutrophils 17.2 10^3/uL (1.5-7.6); Eosinophil % 0.1 %; Hematocrit 42.3 % (38-53); Mean Corpuscular Hemoglobin 30.8 pg (27-33); Mean Corpuscular Hgb Conc 33.1 g/dL (31-36); Mean Platelet Volume 9.1 fL (7.5-11.2); Platelet Count 157 10^3/uL (150-450); Red Blood Count 4.54 10^6/uL (4.06-5.63); White Blood Count 19.1 10^3/uL (3.6-10.2)
[2023-01-15 08:10] LABS: Albumin 3.3 g/dL (3.2-5.2); Albumin/Globulin Ratio 1.1 (1-3); Calcium 8.4 mg/dL (8.6-10.3); Creatinine, Serum 0.76 mg/dL (0.67-1.17); Magnesium 2.2 mg/dL (1.9-2.7); Total Bilirubin 1.8 mg/dL (0.2-1.0); Total Protein 6.3 g/dL (6.4-8.9); eGFR CKD-EPI 89.2 (>60)
[2023-01-15] MEDS: CMCS:Venlafaxine 25 mg TAB (NF) PO SCH (09:06)
[2023-01-15 09:12] LABS: INR 3.67 (0.88-1.18)
[2023-01-15] MEDS ORDERED: Warfarin per PHARMACY **NOTE FOLLOW UP SCH (10:00)
[2023-01-15] MEDS ORDERED: Sulfur Hexaflouride MICROSPHR 25 MG VIAL ONE (13:45)
[2023-01-15] MEDS: cefTRIAXone 2 gm/50 mL D5W 2 GM/50 ML BAG IV SCH (15:33)
[2023-01-15] MEDS ORDERED: Warfarin - No Order Today **NOTE FOLLOW UP ONE (17:00)
[2023-01-15] MEDS ORDERED: Polyethylene Glycol 3350 17 GM PACKET PO PRN (18:04)
[2023-01-16 05:47] LABS: ABS Basophils 0.1 10^3/uL (0.0-0.1); ABS Eosinophils 0.1 10^3/uL (0.0-0.5); ABS Lymphocytes 1.6 10^3/uL (1.0-4.8); ABS Monocytes 0.7 10^3/uL (0.0-1.1); ABS Nucleated RBC 0.01 10^3/ul; Eosinophil % 0.9 %; Hematocrit 41.1 % (38-53); Hemoglobin 13.8 g/dL (13.2-16.3); Lymphocyte % 11.6 %; Mean Corpuscular Hemoglobin 30.6 pg (27-33); Mean Corpuscular Hgb Conc 33.5 g/dL (31-36); Mean Corpuscular Volume 91.3 fL (80-97); Mean Platelet Volume 9.3 fL (7.5-11.2); Platelet Count 156 10^3/uL (150-450); Red Cell Distribution Width 13.6 % (12-17); White Blood Count 13.5 10^3/uL (3.6-10.2)
[2023-01-16 05:57] LABS: INR 2.2 (0.88-1.18)
[2023-01-16 06:01] LABS: Calcium 8.3 mg/dL (8.6-10.3); Creatinine, Serum 0.72 mg/dL (0.67-1.17); Magnesium 1.8 mg/dL (1.9-2.7); Potassium 3.5 mmol/L (3.5-5.0); eGFR CKD-EPI 90.7 (>60)
[2023-01-16] MEDS ORDERED: Magnesium Sulfate 2 gm BAG 2 GM/50 ML BAG IVPB ONE (07:51)
[2023-01-16] MEDS: CMCS:Venlafaxine 25 mg TAB (NF) PO SCH (09:55)
[2023-01-16] MEDS: cefTRIAXone 2 gm/50 mL D5W 2 GM/50 ML BAG IV SCH (15:17)
[2023-01-17 05:48] LABS: ABS Eosinophils 0.2 10^3/uL (0.0-0.5); ABS Lymphocytes 2.2 10^3/uL (1.0-4.8); ABS Monocytes 0.6 10^3/uL (0.0-1.1); ABS Neutrophils 7.8 10^3/uL (1.5-7.6); Eosinophil % 1.5 %; Hematocrit 42.6 % (38-53); Hemoglobin 14.5 g/dL (13.2-16.3); Lymphocyte % 20.6 %; Mean Corpuscular Hemoglobin 31.5 pg (27-33); Mean Corpuscular Hgb Conc 34.2 g/dL (31-36); Mean Corpuscular Volume 92.1 fL (80-97); Mean Platelet Volume 9.4 fL (7.5-11.2); Platelet Count 194 10^3/uL (150-450); Red Blood Count 4.62 10^6/uL (4.06-5.63); Red Cell Distribution Width 13.9 % (12-17); White Blood Count 10.8 10^3/uL (3.6-10.2)
[2023-01-17 05:52] LABS: INR 1.72 (0.88-1.18)
[2023-01-17 06:02] LABS: Calcium 8.4 mg/dL (8.6-10.3); Creatinine, Serum 0.69 mg/dL (0.67-1.17); Magnesium 1.9 mg/dL (1.9-2.7); Potassium 3.3 mmol/L (3.5-5.0); eGFR CKD-EPI 91.8 (>60)
[2023-01-17] MEDS: CMCS:Venlafaxine 25 mg TAB (NF) PO SCH (08:55)
[2023-01-17] MEDS: Potassium Chlor 20 meq TAB.ER PO SCH (08:55)
[2023-01-17] MEDS: cefTRIAXone 2 gm/50 mL D5W 2 GM/50 ML BAG IV SCH (14:59)
[2023-01-18 05:45] LABS: Hematocrit 41.4 % (38-53); Hemoglobin 14.1 g/dL (13.2-16.3); Mean Corpuscular Hemoglobin 31.2 pg (27-33); Mean Corpuscular Hgb Conc 34.1 g/dL (31-36); Mean Corpuscular Volume 91.5 fL (80-97); Mean Platelet Volume 8.5 fL (7.5-11.2); Platelet Count 204 10^3/uL (150-450); Red Blood Count 4.52 10^6/uL (4.06-5.63); Red Cell Distribution Width 14.1 % (12-17); White Blood Count 10.5 10^3/uL (3.6-10.2)
[2023-01-18 05:50] LABS: INR 2.17 (0.88-1.18)
[2023-01-18 06:02] LABS: Calcium 8.2 mg/dL (8.6-10.3); Creatinine, Serum 0.67 mg/dL (0.67-1.17); Potassium 3.6 mmol/L (3.5-5.0); eGFR CKD-EPI 92.6 (>60)
[2023-01-18] MEDS ORDERED: Potassium EFFERVES 25 meq TAB PO ONE (06:57)
[2023-01-18] MEDS ORDERED: NS 0.9% 1000 ml BAG 1,000 ML IV ONE (07:00)
[2023-01-18] MEDS: Potassium Chlor 20 meq TAB.ER PO SCH (07:52)
[2023-01-18] MEDS: CMCS:Venlafaxine 25 mg TAB (NF) PO SCH (07:52)
[2023-01-18 08:36] LABS: ABS Basophils 0.1 10^3/uL (0.0-0.1); ABS Eosinophils 0.2 10^3/uL (0.0-0.5); ABS Lymphocytes 3.4 10^3/uL (1.0-4.8); ABS Monocytes 0.9 10^3/uL (0.0-1.1); ABS Neutrophils 5.9 10^3/uL (1.5-7.6); ABS Nucleated RBC 0.01 10^3/ul; Eosinophil % 1.8 %; Lymphocyte % 32.3 %; Nucleated Red Blood Cells % 0.1 /100 WBC (0.0-0.4)
[2023-01-18] MEDS ORDERED: fentaNYL 100 mcg/2 ml 50 MCG/ML VIAL ONE (13:42)
[2023-01-18] MEDS ORDERED: Midazolam 5 mg/5 ml VIAL 1 mg/ml 5 ml VIAL (5 mg) ONE (13:42)
[2023-01-18] MEDS ORDERED: Flumazenil 0.5 mg/5 ml 0.1 MG/ML 5 ml VIAL ONE (13:42)
[2023-01-18] MEDS ORDERED: Naloxone 0.4 mg VIAL 0.4 mg/ml 1 ml VIAL ONE (13:42)
[2023-01-18] MEDS ORDERED: Midazolam 10 mg/10 ml VIAL 1 mg/ml 10 ml VIAL (10 mg) IV SLOW PU ONE (13:48)
[2023-01-18] MEDS ORDERED: fentaNYL 100 mcg/2 ml 50 MCG/ML VIAL IV SLOW PU ONE (13:48)
[2023-01-18] MEDS: cefTRIAXone 2 gm/50 mL D5W 2 GM/50 ML BAG IV SCH (16:19)
[2023-01-18] MEDS: Warfarin DAILY REMINDER **NOTE FOLLOW UP SCH (19:32)
[2023-01-19 05:57] LABS: Hematocrit 44.2 % (38-53); Mean Corpuscular Hemoglobin 31.3 pg (27-33); Mean Corpuscular Hgb Conc 33.9 g/dL (31-36); Mean Corpuscular Volume 92.2 fL (80-97); Mean Platelet Volume 8.8 fL (7.5-11.2); Platelet Count 230 10^3/uL (150-450); Red Blood Count 4.79 10^6/uL (4.06-5.63); Red Cell Distribution Width 14.2 % (12-17); White Blood Count 10.8 10^3/uL (3.6-10.2)
[2023-01-19 06:03] LABS: INR 2.4 (0.88-1.18)
[2023-01-19 06:12] LABS: Calcium 8.3 mg/dL (8.6-10.3); Creatinine, Serum 0.72 mg/dL (0.67-1.17); Magnesium 1.8 mg/dL (1.9-2.7); Potassium 3.6 mmol/L (3.5-5.0); eGFR CKD-EPI 90.7 (>60)
[2023-01-19 06:18] LABS: ABS Basophils 0.1 10^3/uL (0.0-0.1); ABS Eosinophils 0.3 10^3/uL (0.0-0.5); ABS Lymphocytes 4.2 10^3/uL (1.0-4.8); ABS Monocytes 0.9 10^3/uL (0.0-1.1); ABS Neutrophils 5.4 10^3/uL (1.5-7.6); ABS Nucleated RBC 0.02 10^3/ul; Eosinophil % 2.8 %; Lymphocyte % 38.5 %; Nucleated Red Blood Cells % 0.2 /100 WBC (0.0-0.4)
[2023-01-19] MEDS ORDERED: Potassium EFFERVES 25 meq TAB PO ONE (07:22)
[2023-01-19] MEDS ORDERED: KCL 20 MEQ/100 ML IVPREMIX 20 MEQ/100 ML BAG IV ONE (08:22)
[2023-01-19] MEDS: Lactated Ringers 1000 ml BAG 1,000 ML IV SCH (08:23)
[2023-01-19] MEDS: CMCS:Venlafaxine 25 mg TAB (NF) PO SCH (08:24)
[2023-01-19] MEDS: Magnesium Sulfate IV 1GM/100ML 1 GM/100 ML BAG IV ONE ×2 (08:25→12:54)
[2023-01-19] MEDS: Potassium Chlor 20 meq TAB.ER PO SCH (08:25)
[2023-01-19] MEDS ORDERED: Lidocaine 1% MPF 5 ML VIAL INJ ONE (12:19)
[2023-01-19] MEDS: cefTRIAXone 2 gm/50 mL D5W 2 GM/50 ML BAG IV SCH (16:01)
[2023-01-19] MEDS ORDERED: Furosemide 20 mg/2 ml IV VIAL IV ONE (17:19)
[2023-01-19] MEDS ORDERED: Calcium (OSCAL) 500 mg TAB PO SCH (21:00)
[2023-01-19] MEDS: Warfarin DAILY REMINDER **NOTE FOLLOW UP SCH (21:13)
[2023-01-20 06:18] LABS: INR 2.25 (0.88-1.18)
[2023-01-20 09:25] LABS: Calcium 8.8 mg/dL (8.6-10.3); Creatinine, Serum 0.73 mg/dL (0.67-1.17); eGFR CKD-EPI 90.3 (>60)
[2023-01-20] MEDS: Potassium Chlor 20 meq TAB.ER PO SCH (09:47)
[2023-01-20] MEDS: CMCS:Venlafaxine 25 mg TAB (NF) PO SCH (09:49)
[2023-01-20] MEDS ORDERED: cefTRIAXone 2 gm/50 mL D5W 2 GM/50 ML BAG IV ONE (14:00)
[2023-01-20 15:52] VITALS: BP 145/87
== END 2023-01-20 16:06 | disposition home or self-care (01) | DRG 872 ==
LOC: ED 19:30 → SUATTDRO 01-14 01:30 → EDHOLD 01-14 01:30 → MEDTELE 01-14 12:34
PROVIDERS: ADMIT Student in an Organized Health Care Education/Training Program; ATTEND Internal Medicine

== ENCOUNTER 2023-06-16 10:53 | Inpatient (IN) ==
[2023-06-16 11:27] LABS: ABS Eosinophils 0.1 10^3/uL (0.0-0.5); ABS Lymphocytes 3.1 10^3/uL (1.0-4.8); ABS Monocytes 0.4 10^3/uL (0.0-1.1); ABS Neutrophils 4.1 10^3/uL (1.5-7.6); ABS Nucleated RBC 0.01 10^3/ul; Hematocrit 47.7 % (38-53); Lymphocyte % 40.1 %; Mean Corpuscular Hemoglobin 30.7 pg (27-33); Mean Corpuscular Hgb Conc 33.6 g/dL (31-36); Mean Corpuscular Volume 91.4 fL (80-97); Mean Platelet Volume 9.1 fL (7.5-11.2); Nucleated Red Blood Cells % 0.1 %/100WBC (0.0-0.8); Platelet Count 230 10^3/uL (150-450); Red Blood Count 5.22 10^6/uL (4.06-5.63); Red Cell Distribution Width 13.9 % (12-17); White Blood Count 7.7 10^3/uL (3.6-10.2)
[2023-06-16 11:39] LABS: INR 2.47 (0.83-1.13)
[2023-06-16 11:44] LABS: Albumin 3.9 g/dL (3.2-5.2); Albumin/Globulin Ratio 1.3 (1-3); Calcium 8.9 mg/dL (8.6-10.3); Creatinine, Serum 0.86 mg/dL (0.67-1.17); Globulin 2.9 g/dL (2-4); Potassium 3.9 mmol/L (3.5-5.0); Total Bilirubin 1.5 mg/dL (0.2-1.0); Total Protein 6.8 g/dL (6.4-8.9); eGFR CKD-EPI 85.9 (>60)
[2023-06-16 12:53] LABS: High Sensitivity Troponin 1 Hr 13 pg/mL (<20)
[2023-06-16] MEDS ORDERED: Heparin 5000 UNITS/ML 1 mL VIAL IV SCH (15:00)
[2023-06-16] MEDS ORDERED: Heparin DRIP 25,000 UNITS BAG 25,000 UNITS/250 ML BAG IV SCH (15:00)
[2023-06-16] MEDS: Nitro 2% OINT (Nitroglycerin) 1 INCH/PAK TOPICAL SCH ×2 (15:27→21:04)
[2023-06-16 17:01] LABS: HDL Cholesterol 43.1 mg/dL
[2023-06-16] MEDS: NF:ICOSAPENT ETHYL 1 GM CAPSULE (NF) PO SCH (21:04)
[2023-06-17 06:37] LABS: ABS Eosinophils 0.2 10^3/uL (0.0-0.5); ABS Lymphocytes 3.9 10^3/uL (1.0-4.8); ABS Monocytes 0.6 10^3/uL (0.0-1.1); ABS Neutrophils 3.7 10^3/uL (1.5-7.6); ABS Nucleated RBC 0.01 10^3/ul; Eosinophil % 1.9 %; Hematocrit 44.7 % (38-53); Lymphocyte % 46.3 %; Mean Corpuscular Hemoglobin 30.4 pg (27-33); Mean Corpuscular Hgb Conc 33.6 g/dL (31-36); Mean Corpuscular Volume 90.6 fL (80-97); Mean Platelet Volume 8.9 fL (7.5-11.2); Nucleated Red Blood Cells % 0.1 %/100WBC (0.0-0.8); Platelet Count 228 10^3/uL (150-450); Red Blood Count 4.94 10^6/uL (4.06-5.63); Red Cell Distribution Width 13.6 % (12-17); White Blood Count 8.5 10^3/uL (3.6-10.2)
[2023-06-17 06:47] LABS: INR 2.11 (0.83-1.13)
[2023-06-17 06:52] LABS: Calcium 8.4 mg/dL (8.6-10.3); Creatinine, Serum 0.86 mg/dL (0.67-1.17); Potassium 3.8 mmol/L (3.5-5.0); eGFR CKD-EPI 85.9 (>60)
[2023-06-17] MEDS: Nitro 2% OINT (Nitroglycerin) 1 INCH/PAK TOPICAL SCH ×3 (07:38→16:05)
[2023-06-17] MEDS ORDERED: KCL 20 MEQ/100 ML IVPREMIX 20 MEQ/100 ML BAG IV ONE (08:54)
[2023-06-17] MEDS: CMC:Epleronone 25 mg TAB (NF) PO SCH (09:03)
[2023-06-17] MEDS: Venlafaxine XR 75 mg PO SCH (09:03)
[2023-06-17] MEDS ORDERED: Sulfur Hexaflouride MICROSPHR 25 MG VIAL ONE (09:44)
[2023-06-17] MEDS: NF:ICOSAPENT ETHYL 1 GM CAPSULE (NF) PO SCH ×2 (10:05→21:01)
[2023-06-18 06:56] LABS: ABS Eosinophils 0.2 10^3/uL (0.0-0.5); ABS Lymphocytes 3.8 10^3/uL (1.0-4.8); ABS Monocytes 0.7 10^3/uL (0.0-1.1); ABS Neutrophils 4.1 10^3/uL (1.5-7.6); ABS Nucleated RBC 0.02 10^3/ul; Eosinophil % 1.8 %; Hematocrit 45.2 % (38-53); Hemoglobin 15.3 g/dL (13.2-16.3); Lymphocyte % 43.4 %; Mean Corpuscular Hemoglobin 30.6 pg (27-33); Mean Corpuscular Hgb Conc 33.8 g/dL (31-36); Mean Corpuscular Volume 90.4 fL (80-97); Mean Platelet Volume 9.2 fL (7.5-11.2); Nucleated Red Blood Cells % 0.2 %/100WBC (0.0-0.8); Platelet Count 233 10^3/uL (150-450); Red Cell Distribution Width 13.7 % (12-17); White Blood Count 8.7 10^3/uL (3.6-10.2)
[2023-06-18 07:06] LABS: INR 1.65 (0.83-1.13)
[2023-06-18 07:13] LABS: Calcium 8.6 mg/dL (8.6-10.3); Creatinine, Serum 0.83 mg/dL (0.67-1.17); Magnesium 1.8 mg/dL (1.9-2.7); Potassium 3.5 mmol/L (3.5-5.0); eGFR CKD-EPI 86.8 (>60)
[2023-06-18] MEDS ORDERED: Magnesium Sulfate 2 gm BAG 2 GM/50 ML BAG IVPB ONE (07:58)
[2023-06-18] MEDS: KCL 20 MEQ/100 ML IVPREMIX 20 MEQ/100 ML BAG IV SCH ×2 (09:34→18:11)
[2023-06-18] MEDS ORDERED: Iohexol 350 (CONTRAST) 200 ML MDV IV ONE (11:13)
[2023-06-18] MEDS ORDERED: Heparin 2 UNITS/ML 1000 mls 2,000 ML IV ONE (11:13)
[2023-06-18] MEDS ORDERED: Lidocaine 1% MPF 5 ML VIAL ONE (11:13)
[2023-06-18] MEDS ORDERED: VERAPAMIL 2.5 MG/ML 2 ML VIAL ** 5 mg/2 ml ONE (11:26)
[2023-06-18] MEDS ORDERED: Heparin 1,000 UNIT/ML 10 ml (10,000 UNITS) CATHLAB/DIALYSIS ONE (11:27)
[2023-06-18] MEDS ORDERED: nitroGLYCERIN DRIP 25,000 MCG/250 ML BTL ONE (11:27)
[2023-06-18] MEDS ORDERED: fentaNYL 100 mcg/2 ml 50 MCG/ML VIAL ONE (11:34)
[2023-06-18] MEDS ORDERED: Midazolam 5 mg/5 ml VIAL 1 mg/ml 5 ml VIAL (5 mg) ONE (11:34)
[2023-06-18] MEDS ORDERED: NS 0.9% 1000 ml BAG 1,000 ML IV SCH (13:00)
[2023-06-18] MEDS: CMCS: Irbesartan 150 mg TAB (NF) PO SCH ×2 (16:06→21:36)
[2023-06-18] MEDS: NF:ICOSAPENT ETHYL 1 GM CAPSULE (NF) PO SCH ×2 (16:44→21:36)
[2023-06-18] MEDS: CMC:Epleronone 25 mg TAB (NF) PO SCH (16:44)
[2023-06-18] MEDS: Venlafaxine XR 75 mg PO SCH (16:45)
[2023-06-18] MEDS ORDERED: Warfarin per PHARMACY **NOTE FOLLOW UP SCH (17:00)
[2023-06-18] MEDS ORDERED: Warfarin DAILY REMINDER **NOTE FOLLOW UP SCH (17:00)
[2023-06-18] MEDS ORDERED: NS 0.9% 250 ml 250 ML IV ONE (19:08)
[2023-06-18] MEDS: Nitro 2% OINT (Nitroglycerin) 1 INCH/PAK TOPICAL SCH ×2 (19:48→19:49)
[2023-06-19 07:12] LABS: ABS Lymphocytes 3.6 10^3/uL (1.0-4.8); ABS Monocytes 0.7 10^3/uL (0.0-1.1); ABS Neutrophils 6.6 10^3/uL (1.5-7.6); ABS Nucleated RBC 0.01 10^3/ul; Eosinophil % 0.3 %; Hematocrit 45.6 % (38-53); Hemoglobin 15.4 g/dL (13.2-16.3); Lymphocyte % 32.5 %; Mean Corpuscular Hemoglobin 30.4 pg (27-33); Mean Corpuscular Hgb Conc 33.7 g/dL (31-36); Mean Corpuscular Volume 90.1 fL (80-97); Mean Platelet Volume 9.7 fL (7.5-11.2); Nucleated Red Blood Cells % 0.1 %/100WBC (0.0-0.8); Platelet Count 236 10^3/uL (150-450); Red Blood Count 5.06 10^6/uL (4.06-5.63); Red Cell Distribution Width 13.5 % (12-17)
[2023-06-19 07:16] LABS: INR 1.48 (0.83-1.13)
[2023-06-19] MEDS ORDERED: Magnesium Sulfate 2 gm BAG 2 GM/50 ML BAG IVPB ONE (07:26)
[2023-06-19] MEDS: Venlafaxine XR 75 mg PO SCH (08:12)
[2023-06-19] MEDS: CMC:Epleronone 25 mg TAB (NF) PO SCH (08:14)
[2023-06-19] MEDS: NF:ICOSAPENT ETHYL 1 GM CAPSULE (NF) PO SCH (08:26)
[2023-06-19 08:30] LABS: Calcium 8.6 mg/dL (8.6-10.3); Creatinine, Serum 0.78 mg/dL (0.67-1.17); Magnesium 1.8 mg/dL (1.9-2.7); Potassium 3.5 mmol/L (3.5-5.0); eGFR CKD-EPI 88.5 (>60)
[2023-06-19 15:00] VITALS: BP 134/62
[2023-06-20 11:45] LABS: C Reactive Protein 2.29 mg/L (<8.01)
[2023-06-23 16:57] LABS: Albumin 2.9 g/dL (3.4-4.7); Albumin/Globulin Ratio 0.95; Flag, M-protein Isotype Negative (Negative); Gamma Globulin 0.9 g/dL (0.6-1.6)
== END 2023-06-19 15:08 | disposition home or self-care (01) | DRG 287 ==
LOC: ED 10:53 → EDHOLD 14:54 → MEDTELE 16:54
PROVIDERS: ADMIT Student in an Organized Health Care Education/Training Program; ATTEND Student in an Organized Health Care Education/Training Program